=== PATIENT | female | born 2000 | race Caucasian/White ===

== ENCOUNTER 2023-03-06 20:43 | Emergency (ER) | payer OTHER, SELFPAY ==
--- NOTE | 2023-03-06 20:44 | ED.GENADULT ---
HPI - General Adult General Stated complaint: Eye Pain Source: patient Mode of arrival: ambulatory Limitations: no limitations History of Present Illness HPI narrative: patient complains of her left eye being red and irritated started 3 days ago and then the skin around her left eye started to get red. She has had some discharge her left eye. Denies any trauma or injury. Boyfriend will a week ago had cellulitis of his finger. She denies any fever sore throat runny nose cough lightheaded dizziness other rash bleeding or bruising problems voiding or stooling lumps or bumps or any other complaints. She says her vision is okay maybe a little blurred and a corner. She did have discharge or eye this morning. Patient comes from the urgent care where she was seen at half an hour ago and was told to come the emergency room if she got worse. There she was prescribed erythromycin ointment to put 4 times a day in her right eye and cephalexin 500 4 times a day. Patient wears glasses for near vision. Past medical history is positive for anxiety. Related Data Home Medications Medication Instructions Recorded Confirmed cephalexin 500 mg capsule 1 mg PO BID 03/06/23 03/06/23 erythromycin 5 mg/gram (0.5 %) eye 1 applic EACH EYE Q6H 03/06/23 03/06/23 ointment sertraline 100 mg tablet 200 mg PO DAILY 03/06/23 03/06/23 trazodone 50 mg tablet 25 mg PO HS PRN Sleep 03/06/23 03/06/23 Allergies Allergy/AdvReac Type Severity Reaction Status Date / Time hydrocodone Allergy Hives Verified 03/06/23 20:59 [facility] Past Medical History Medical History Asthma Family History Family History Other Acute myocardial infarction Diabetes mellitus Heart disease Hypertension Social History Social History Smoking status: Never smoker Alcohol intake: current Alcohol use details: soically Substance use: never Substance use type: does not use Living arrangements: with family Occupation/Education: occupation Additional occupation/education comments: [employer] Gender identity (if verbalized by the patient): Female Sexual Orientation (if Verbalized by the Patient): Straight or Heterosexual Exam Narrative: White female somewhat anxious his mishel orbital erythema and mild swelling of her lid and both conjunctiva are injected left greater than the right no exudate seen. Extraocular movements are intact. Sclera nonicteric. oropharynx is clear with moist mucous membranes. Neck is supple no lymphadenopathy lungs are clear. Heart is regular rate and rhythm without murmurs gallops or rubs. Vital signs are normal. Rest of her skin is warm and dry. Neurologic was she is alert and oriented motor and sensory grossly intact gait is normal speech is normal Medical Decision Making MDM Narrative Medical decision making narrative: Independent Historian: boyfriend and anti Differential Dx includes but not limited to: Mishel septal cellulitis orbital cellulitis conjunctivitis Independently Reviewed by me: External Source Review: Shared decision Making: discussed that she could use the cephalexin 500 mg 4 times a day as prescribed by the [facility]. or Augmentin 875 twice a day as prescribed by me for 10 days . And patient decided to use the augmented. Was discussed with her that the erythromycin eye ointment could be used but she should use it on both eyes and said adjust her right eye. Because she has bilateral conjunctivitis as well as her periorbital cellulitis. Patient received 1 g of Rocephin IM. right vision was 20/30 her left eye was 20/25 Discharge Plan Discharge Clinical Impression: Periorbital cellulitis of left eye Acute conjunctivitis of both eyes Qualifiers: Acute conjunctivitis type: bacterial Qualified Code(s): H10.33 - Unspecified acut
[2023-03-06 20:45] VITALS: BP 140/87; PULSE 98; RESP 20; TEMP 36.9; O2SAT 100
[2023-03-06] MEDS: cefTRIAXone 1 GM, LIDOCAINE HCL 1% LOCAL INJ 2.1 ML IM (21:21)
[2023-03-06 21:57] VITALS: BP 118/96; PULSE 93; RESP 20; TEMP 36.8; O2SAT 99
== END 2023-03-06 22:01 | disposition home or self-care (01) ==
PROVIDERS: Emergency Provider Emergency Medicine; PCP Internal Medicine
DX: L03.213 Periorbital cellulitis (principal); H10.33 Unspecified acute conjunctivitis, bilateral
CPT/HCPCS: 96372; 99283; J0696

== ENCOUNTER 2023-09-09 14:04 | Outpatient (CLI) | payer OTHER, SELFPAY ==
--- NOTE | 2023-10-10 13:31 | WPDHOLTEREM ---
Holter/Event Monitor Holter/Event Monitor Date of procedure: 09/09/23 Holter/Event Procedure: Event Monitor Indications: Palpitations Conclusion: 1. 26 days event monitor between 09/09/23-10/07/23. There are 62 available transmissions for analysis. 2. Predominant rhythm is sinus rhythm. HR range 50-171 bpm; average HR 78 bpm HR at 171 bpm was sinus tachycardia on 09/26/23 at 11:39. 3. No premature supraventricular complexes. There is one episode of atrial tachycardia at 130 bpm lasting less than 10 seconds on 09/17/23 at 17:03. 4. There are occasional premature ventricular complexes with total burden of 1%. No ventricular tachycardia. 5. Patient reports 56 episodes of symptoms of shortness of breath, skipped beat, dizziness, lightheadedness, heart racing, which demonstrate sinus rhythm, HR range 60-130 bpm with 7 episodes with PVC's and 1 episode of atrial tachycardia as described above.
== END 2023-09-09 14:05 | disposition home or self-care (01) ==
LOC: CHSCARD 14:06
PROVIDERS: PCP Internal Medicine; Visit Provider Internal Medicine
DX: R00.2 Palpitations (principal); I47.19 Other supraventricular tachycardia
CPT/HCPCS: 93270

== ENCOUNTER 2024-07-13 08:10 | Outpatient (CLI) | payer BC, SELFPAY ==
--- NOTE | ~2024-07-13 | US_ITS ---
EXAMINATION: US soft tissue LE RT DATE: 07/13/2024 08:26 INDICATION: Anterior right knee swelling TECHNIQUE: Multiple grayscale and Doppler ultrasound images of the region of concern at the anterior right knee were obtained. COMPARISON: None FINDINGS: There is a small right knee joint effusion at the suprapatellar pouch. Unremarkable appearance to the overlying subcutaneous fat and distal quadriceps tendon. No other abnormal masses or fluid collectio ns identified. IMPRESSION: 1. Small right knee joint effusion. Reviewed, dictated and finalized at location A.
== END 2024-07-13 08:11 | disposition home or self-care (01) ==
LOC: CHSIMG 08:13
PROVIDERS: PCP Internal Medicine; Visit Provider Nurse Practitioner Family
DX: I83.811 Varicose veins of right lower extremity with pain (principal); M25.461 Effusion, right knee
CPT/HCPCS: 76882